=== PATIENT | female | born 1965 | race Caucasian/White ===

== ENCOUNTER 2017-03-04 13:29 | Emergency (ER) | payer OTHER ==
[2017-03-04 13:37] VITALS: BP 120/74; PULSE 109; TEMP 97.7; BMI 23.8
[2017-03-04] MEDS ORDERED: KETOROLAC TROMETHAMINE 60 MG/2 ML VIAL IM ONE (15:10)
[2017-03-04] MEDS ORDERED: KETOROLAC TROMETHAMINE 60 MG/2 ML VIAL ONE (15:15)
--- NOTE | 2017-03-04 15:40 | PDOC ---
History of Present Illness - General Chief Complaint: Injury Stated Complaint: PAIN Time Seen by Provider: 03/04/17 13:47 History Source: Patient Exam Limitations: No Limitations - History of Present Illness Initial Comments: 03/04/17 15:29 Patient is a 51-year-old female, Kylah's,spondyloropathy,fibromyalgia, ulcerative colitis with ileostomy, presents emergency Department with injury sustained while at work moving boxes, pain to left shoulder, pain and swelling to dorsum of right hand. Reports hitting her hand while moving the box. Past Medical History: Denies. Allergies: No known allergies Medications: Synthroid, Vitamin D Family History: Non-contributory Social History: Denies smoking, alcohol use, or IVDU Vital signs on arrival are notable for pulse of 106. Review of Systems GENERAL/CONSTITUTIONAL: No fever or chills. No weakness. No weight change. HEAD, EYES, EARS, NOSE AND THROAT: No change in vision. No ear pain or discharge. No sore throat. CARDIOVASCULAR: No chest pain or shortness of breath. RESPIRATORY: No cough, wheezing, or hemoptysis. GASTROINTESTINAL: No nausea, vomiting, diarrhea or constipation. No rectal bleeding. GENITOURINARY: No dysuria, frequency, or change in urination. MUSCULOSKELETAL: Pain and swelling to the dorsum of the right hand, healing eccymosis. SKIN : Edema, bruising dorsum of the right hand. NEUROLOGIC: No headache, vertigo, loss of consciousness, or loss of sensation. HEMATOLOGIC/LYMPHATIC: No anemia, easy bleeding, or history of blood clots. ALLERGIC/IMMUNOLOGIC: No hives or skin allergy. No latex allergy. Physical Exam: GENERAL: The patient is awake, alert, and fully oriented, in no acute distress. EYES: Pupils equal, round and reactive to light, extraocular movements intact, sclera anicteric, conjunctiva clear. ENT: Ears normal, nares patent, oropharynx clear without exudates. Moist mucous membranes. No uvula deviation NECK: Normal range of motion, supple without lymphadenopathy, JVD, or masses. LUNGS: Breath sounds equal, clear to auscultation bilaterally. No wheezes, and no crackles. HEART: Regular rate and rhythm, normal S1 and S2 without murmur, rub or gallop. ABDOMEN: Soft, nontender, normoactive bowel sounds. No guarding, no rebound. No masses. No bruising or abrasions MUSCULOSKELETAL: Decreased ROM to the right hand, swelling and healing eccymosis to the dorsum of the right hand at the base of the 1st finger. Decreased ROM to left shoulder with pain to lateral arm. Unable to abduct left shoulder, pronate. NEUROLOGICAL: Cranial nerves II through XII grossly intact. Normal speech, normal gait. No neuro or sensory deficits to the left arm. SKIN: Warm, Dry, normal turgor, no rashes or lesions noted. Past History - Past Medical History Allergies/Adverse Reactions: Allergies Allergy/AdvReac Type Severity Reaction Status Date / Time clindamycin Allergy Verified 03/04/17 13:32 Home Medications: Ambulatory Orders Naproxen [Naprosyn -] 500 mg PO BID #14 tablet 03/04/17 Cardiac Disorders: Yes (heart murmur, mvp) GI Disorders: Yes (IBS) Thyroid Disease: Yes Other medical history: Kylah's,spondyloropathy,fibromyalgia - Psycho/Social/Smoking Cessation Hx Suicidal Ideation: No Smoking History: Never smoked *Physical Exam - Vital Signs Last Vital Signs Temp Pulse Resp BP Pulse Ox 97.7 F 109 H 18 120/74 97 03/04/17 13:33 03/04/17 13:33 03/04/17 13:33 03/04/17 13:33 03/04/17 13:33 ED Treatment Course - RADIOLOGY Radiology Studies Ordered: Category Date Time Status SHOULDER-LEFT [RAD] Stat Radiology 03/04/17 14:43 Ordered WRIST W/HAND-RIGHT* [RAD] Stat Radiology 03/04/17 14:43 Ordered - Medications Given in the ED: ED Medications Discontinued Medications Generic Name Dose Route Start Last Admin Trade Name Freq PRN Reason Stop Dose Admin Ketorolac Tromethamine 60 mg 03/04/17 15:10 03/04/17 15:18 Toradol Injection - IM 03/04/17 15:11 60 mg ONCE ONE Administration Medical Decision Making - Medical Decision Making 03/04/17 15:57 A/P : S/P injury while at work. Pain to the right hand and the left shoulder. Toradol 60 mg IM x 1 Xray to the right hand and the left shoulder Left shoulder immobilizer. Patient to follow-up with orthopedics and primary care doctor, anti- inflammatories for pain. I discussed the physical exam findings, ancillary test results and final diagnoses with the patient. I answered all of the patient's questions. The patient was satisfied with the care received and felt comfortable with the discharge plan and treatment plan. The patient will call to arrange follow-up and will return to the Emergency Department with any new, persistent or worsening symptoms. *DC/Admit/Observation/Transfer Diagnosis at time of Disposition: Shoulder pain Qualifiers: Chronicity: acute Laterality: left Qualified Code(s): M25.512 - Pain in left shoulder Contusion, hand Qualifiers: Encounter type: initial encounter Laterality: right Qualified Code(s): S60.221A - Contusion of right hand, initial encounter - Discharge Dispostion Disposition: HOME Condition at time of disposition: Good Admit: No - Prescriptions Prescriptions: Naproxen [Naprosyn -] 500 mg PO BID #14 tablet - Referrals Referrals: Jeremy Campbell MD [Staff Physician] - - Patient Instructions Printed Discharge Instructions: How to Use a Sling Additional Instructions: Recommend follow up with ortho for shoulder. Ice to right hand. - Post Discharge Activity Work/School Note: Back to Work
== END 2017-03-04 17:14 | disposition home or self-care (01) ==
LOC: JERFT 13:29
PROC: 3E0133Z Introduction of Anti-inflammatory into Subcutaneous Tissue, Percutaneous Approach (ICD-10-PCS; principal; 2017-03-04)
DX: S60.221A Contusion of right hand, initial encounter (principal); M25.512 Pain in left shoulder; E06.3 Autoimmune thyroiditis; M79.7 Fibromyalgia; K51.90 Ulcerative colitis, unspecified, without complications; Z88.1 Allergy status to other antibiotic agents; I34.1 Nonrheumatic mitral (valve) prolapse; R01.1 Cardiac murmur, unspecified; W22.8XXA Striking against or struck by other objects, initial encounter; Y93.89 Activity, other specified; Y92.9 Unspecified place or not applicable; Y99.0 Civilian activity done for income or pay
CPT/HCPCS: 73030-TC-LT; 73110-TC-RT; 73130-TC-RT; 99281-25

== ENCOUNTER 2019-08-09 08:30 | Day surgery (SDC) | payer OTHER ==
[2019-08-08 12:30] VITALS: BMI 23.8
[2019-08-09 09:13] VITALS: TEMP 97.9
[2019-08-09 11:41] VITALS: BP 115/68; PULSE 73
--- NOTE | 2019-08-10 16:50 | PATH ---
Surgical Pathology Report Patient Name: DAVID KOEHLER [facility]. Rec. #: [id number] /Age/Gender: 1965 (Age: 54) / F Account: [id number] Location: U-ENDOSCOPY Taken: 08/09/2019 Received: 08/09/2019 Reported: 08/10/2019 Physicians: Ludy Doyle M.D. Specimen(s) Received A: DUODENUM, SECOND PORTION AND BULB B: GASTRIC FUNDUS, POLYPS C: ANTRUM D: GASTRIC FUNDUS, ULCER E: GE JUNCTON F: ILEUM, 20 CM G: PERIOSTOMY ILEM Clinical History Diffuse abdominal pain, nausea, diarrhea Postoperative diagnosis: Gastric fundus polyps, ulcer, GERD, hiatal hernia, history of colectomy for ulcerative colitis Final Diagnosis A. DUODENUM, SECOND PORTION AND BULB, BIOPSY: DUODENAL MUCOSA WITH MILD CHRONIC DUODENITIS. B. GASTRIC FUNDUS, POLYPS, BIOPSY: POLYPOID GASTRIC MUCOSA WITH MILD CHRONIC GASTRITIS AND RARE MILDLY DILATED GLANDS. IMMUNOHISTOCHEMICAL STAIN FOR H. PYLORI IS NEGATIVE. C. STOMACH, ANTRUM, BIOPSY: GASTRIC ANTRAL MUCOSA WITH MILD CHRONIC GASTRITIS. IMMUNOHISTOCHEMICAL STAIN FOR H. PYLORI IS NEGATIVE. D. GASTRIC FUNDUS, ULCER, BIOPSY: GASTRIC MUCOSA WITH MILD CHRONIC GASTRITIS AND FOCAL REACTIVE CHANGES. IMMUNOHISTOCHEMICAL STAIN FOR H. PYLORI IS NEGATIVE. E. GE JUNCTION, BIOPSY: SQUAMOCOLUMNAR MUCOSA WITH MODERATE CHRONIC INFLAMMATION AND CHANGES OF MODERATE REFLUX ESOPHAGITIS. NO INTESTINAL METAPLASIA OR DYSPLASIA IDENTIFIED. F. ILEUM, 20 CM, BIOPSY: ILEAL MUCOSA WITHOUT SIGNIFICANT PATHOLOGIC FINDINGS. SEPARATE FRAGMENT OF GASTRIC MUCOSA WITH MINIMAL CHRONIC INFLAMMATION. G. PERIOSTOMY ILEUM, BIOPSY: ILEAL MUCOSA WITHOUT SIGNIFICANT PATHOLOGIC FINDINGS. Electronically Signed Theodora Tovar M.D. Gross Description A. Received in formalin, labeled "biopsy duodenum second portion" are 3 silveira, irregular portions of soft tissue averaging 0.3 cm. in greatest dimension. The specimens are submitted in toto in one cassette. B. Received in formalin, labeled "polyps gastric fundus" is a silveira, irregular portion of soft tissue measuring 0.3 cm. in greatest dimension. The specimen is submitted in toto in one cassette. C. Received in formalin labeled "biopsy antrum," is a 0.4 x 0.2 x 0.2 cm aggregate of silveira soft tissue fragments. The formalin is filtered and the specimen is entirely submitted in one cassette. D. Received in formalin, labeled "biopsy gastric fundus" is a silveira, irregular portion of soft tissue measuring 0.3 cm. in greatest dimension. The specimen is submitted in toto in one cassette. E. Received in formalin labeled "biopsy GE junction," is a 0.5 x 0.3 x 0.2 cm aggregate of silveira soft tissue fragments. The formalin is filtered and the specimen is entirely submitted in one cassette. F. Received in formalin, labeled "biopsy ileum at 20 cm" are 2 silveira, irregular portions of soft tissue averaging 0.2 cm. in greatest dimension. The specimens are submitted in toto in one cassette. G. Received in formalin, labeled "periostomy ileum" is a silveira, irregular portion of soft tissue measuring 0.2 cm. in greatest dimension. The specimen is submitted in toto in one cassette. 08/10/2019 [facility]08/10/2019
== END 2019-08-09 12:08 | disposition home or self-care (01) ==
LOC: JASU-ENDO 08:30
PROVIDERS: ATTEND Internal Medicine Gastroenterology
PROC: 0DB68ZX Excision of Stomach, Via Natural or Artificial Opening Endoscopic, Diagnostic (ICD-10-PCS; 2019-08-09)
PROC: 0DB48ZX Excision of Esophagogastric Junction, Via Natural or Artificial Opening Endoscopic, Diagnostic (ICD-10-PCS; 2019-08-09)
PROC: 0DJD8ZZ Inspection of Lower Intestinal Tract, Via Natural or Artificial Opening Endoscopic (ICD-10-PCS; 2019-08-09)
PROC: 0DB98ZX Excision of Duodenum, Via Natural or Artificial Opening Endoscopic, Diagnostic (ICD-10-PCS; principal; 2019-08-09 08:45)
DX: K29.80 Duodenitis without bleeding (principal); K29.50 Unspecified chronic gastritis without bleeding; K21.0 Gastro-esophageal reflux disease with esophagitis; K25.9 Gastric ulcer, unspecified as acute or chronic, without hemorrhage or perforation; K44.9 Diaphragmatic hernia without obstruction or gangrene; K31.7 Polyp of stomach and duodenum
CPT/HCPCS: 81025

== ENCOUNTER 2023-06-30 12:50 | Inpatient (IN) | payer OTHER ==
[2023-06-30] MEDS ORDERED: ACETAMINOPHEN 1000 MG/100 ML BAG IVPB ONE (13:28)
[2023-06-30] MEDS ORDERED: ONDANSETRON 4 MG/2 ML VIAL IVPUSH ONE (13:29)
[2023-06-30] MEDS ORDERED: LACTATED RINGERS SOLUTION 1000 ML INFUS.BAG IV ONE ×3 (13:34→16:42)
[2023-06-30] MEDS ORDERED: morphine CARPU-JECT 4 MG/1 ML DISP.SYRIN IVPUSH ONE (13:44)
[2023-06-30] MEDS ORDERED: morphine SULFATE 4 MG/ML VIAL ONE (13:51)
[2023-06-30] MEDS ORDERED: ACETAMINOPHEN INJECTION 100 ML IVPB ONE ×2 (13:52→22:44)
[2023-06-30] MEDS ORDERED: ONDANSETRON 4 MG/2 ML VIAL ONE ×2 (13:52→22:00)
[2023-06-30 14:42] LABS: INR 0.95 (0.83-1.09)
[2023-06-30 14:43] LABS: LACTIC ACID 4.9 mmol/L (0.4-2.0)
[2023-06-30 14:45] LABS: ACTIVATED PTT 26.6 SECONDS (25.2-36.5)
[2023-06-30 14:46] LABS: HEMATOCRIT 45.9 % (32.4-45.2); HEMOGLOBIN 15.1 GM/dL (10.7-15.3); MCH 29.6 pg (25.7-33.7); MCHC 32.9 g/dl (32.0-36.0); MEAN CELL VOLUME 89.9 fl (80-96); MEAN PLT VOLUME 10.8 fl (7.5-11.1); PLATELET COUNT 182 10^3/uL (134-434); RBC 5.11 M/mm3 (3.60-5.2); RDW 13.8 % (11.6-15.6); WHITE BLOOD COUNT 10.2 K/mm3 (4.0-10.0)
[2023-06-30] MEDS ORDERED: METOPROLOL TARTRATE 5 MG/5 ML VIAL IVPUSH ONE (14:49)
[2023-06-30] MEDS ORDERED: METOPROLOL TARTRATE 5 MG/5 ML VIAL ONE (14:51)
[2023-06-30 14:59] LABS: POTASSIUM 3.9 mmol/L (3.5-5.1)
[2023-06-30 15:01] LABS: CALCIUM 10.1 mg/dL (8.5-10.1)
[2023-06-30 15:05] LABS: CREATININE 1.1 mg/dL (0.55-1.3)
[2023-06-30 15:06] LABS: BILIRUBIN,TOTAL 0.4 mg/dL (0.2-1); TOT PROT 7.7 g/dl (6.4-8.2)
[2023-06-30 15:30] LABS: ANISOCYTOSIS 0; HELMET CELLS 0; HOWELL-JOLLY BODIES 0; MACROCYTOSIS 0; OVALOCYTE 0; ROULEAU 0; SICKELED CELLS 0; TARGET CELLS 0; TEAR DROP CELLS 0; TOXIC GRANULATION 0
[2023-06-30] MEDS ORDERED: PIPERACILLIN/TAZOB 4.5 GM 4.5 GM in DEXTROSE 5%-WATER 100 ML IVPB ONE (16:33)
[2023-06-30] MEDS ORDERED: PIPERACILLIN/TAZOB 4.5 GM 4.5 GM/100 ML BAG IVPB ONE (16:42)
[2023-06-30] MEDS ORDERED: LIDOCAINE VISCOUS 2% ORAL/TOP 15 ML UNIT-DOSE CUP MM ONE (16:52)
[2023-06-30] MEDS ORDERED: morphine CARPU-JECT 2 MG/1 ML DISP.SYRIN IVPUSH PRN (17:20)
[2023-06-30] MEDS ORDERED: ACETAMINOPHEN 1000 MG/100 ML BAG IVPB PRN ×2 (17:21→22:42)
[2023-06-30] MEDS ORDERED: LACTATED RINGERS SOLUTION 1,000 ML/1,000 ML INFUS.BAG IV SCH (17:30)
[2023-06-30] MEDS ORDERED: MIDAZOLAM HCL 2 MG/2 ML SINGLE DOSE VIAL ONE (20:47)
[2023-06-30] MEDS ORDERED: SUCCINYLCHOLINE CHLORIDE 200 MG/10 ML SYRINGE ONE (20:47)
[2023-06-30] MEDS ORDERED: PROPOFOL 20 ML ONE (20:47)
[2023-06-30] MEDS ORDERED: LIDOCAINE HCL/PF 2% SDV 5ML VIAL ONE (20:47)
[2023-06-30] MEDS ORDERED: ROCURONIUM BROMIDE 50 MG/5 ML SYRINGE ONE (20:47)
[2023-06-30] MEDS ORDERED: BUPIVACAINE HCL/PF 0.25% (2.5MG/ML) 10 ML VIAL ONE ×2 (21:10)
[2023-06-30] MEDS ORDERED: ceFAZolin SODIUM 1 GM VIAL ONE (21:17)
[2023-06-30] MEDS ORDERED: DEXAMETHASONE SOD PHOSPHATE 4 MG/1 ML VIAL ONE (21:17)
[2023-06-30] MEDS ORDERED: HEPARIN NA (PORCINE) 5,000 UNITS/ML 1ML VIAL ONE (21:30)
[2023-06-30] MEDS ORDERED: KETOROLAC TROMETHAMINE 30 MG/1 ML VIAL ONE (22:00)
[2023-06-30] MEDS ORDERED: BUPIVACAINE HCL/PF 0.25% (2.5MG/ML) 10 ML VIAL IJ ONE (22:05)
[2023-06-30] MEDS ORDERED: ONDANSETRON 4 MG/2 ML VIAL IVPUSH PRN (22:22)
[2023-06-30] MEDS ORDERED: PROMETHAZINE HCL 25 MG/1 ML VIAL IVPB PRN (22:22)
[2023-06-30] MEDS ORDERED: FENTANYL CITRATE/PF 50 MCG/ML VIAL ONE (22:44)
[2023-06-30] MEDS: ACETAMINOPHEN 1000 MG/100 ML BAG IVPB ONE ×2 (22:46→22:48)
[2023-06-30] MEDS: LACTATED RINGERS SOLUTION 1,000 ML/1,000 ML INFUS.BAG IV SCH (23:00)
[2023-06-30] MEDS: LACTATED RINGERS SOLUTION 1,000 ML IV SCH (23:30)
[2023-07-01 03:35] VITALS: BMI 25.0
[2023-07-01] MEDS: LEVOTHYROXINE NA 75 MCG TABLET (FP) PO SCH (06:19)
[2023-07-01] MEDS ORDERED: LEVOTHYROXINE NA 75 MCG TABLET (FP) PO SCH ×2 (07:00→10:00)
[2023-07-01] MEDS: CALCIUM CARBONATE 650 MG TABLET PO SCH (09:39)
[2023-07-01] MEDS ORDERED: CALCIUM CARBONATE 650 MG TABLET PO SCH (10:00)
[2023-07-01] MEDS ORDERED: CHOLECALCIFEROL (VIT D3) 5000 UNITS (125 MCG) CAP PO SCH (10:00)
[2023-07-01] MEDS ORDERED: CYANOCOBALAMIN 1,000 MCG TABLET (FP) PO SCH (10:00)
[2023-07-01] MEDS ORDERED: CALCIUM CARBONATE 600 MG PO SCH (10:00)
[2023-07-01 10:45] LABS: BASO % 0.1 % (0-2.0); HEMOGLOBIN 11.7 GM/dL (10.7-15.3); LYMPH % 8.9 % (8-40); MCH 30.1 pg (25.7-33.7); MCHC 33.5 g/dl (32.0-36.0); MEAN PLT VOLUME 10.9 fl (7.5-11.1); MONO % 7.9 % (3.8-10.2); NEUT % 83.1 % (42.8-82.8); PLATELET COUNT 130 10^3/uL (134-434); RBC 3.89 M/mm3 (3.60-5.2); RDW 14.4 % (11.6-15.6); WHITE BLOOD COUNT 5.9 K/mm3 (4.0-10.0)
[2023-07-01 11:48] LABS: CALCIUM 8.7 mg/dL (8.5-10.1)
[2023-07-01 11:54] LABS: CREATININE 0.7 mg/dL (0.55-1.3)
[2023-07-01 11:55] LABS: POTASSIUM 3.7 mmol/L (3.5-5.1)
[2023-07-01] MEDS ORDERED: traMADol HCL 50 MG TABLET PO PRN (18:16)
[2023-07-01] MEDS: ACETAMINOPHEN 325 MG TABLET (FP) PO SCH (19:44)
[2023-07-02] MEDS: ACETAMINOPHEN 325 MG TABLET (FP) PO SCH ×3 (00:05→13:11)
[2023-07-02] MEDS: LACTATED RINGERS SOLUTION 1,000 ML IV SCH (01:44)
[2023-07-02] MEDS: LACTATED RINGERS SOLUTION 1,000 ML/1,000 ML INFUS.BAG IV SCH (01:46)
[2023-07-02] MEDS: LEVOTHYROXINE NA 75 MCG TABLET (FP) PO SCH (06:33)
[2023-07-02] MEDS: CALCIUM CARBONATE 650 MG TABLET PO SCH (10:38)
[2023-07-02 12:22] LABS: BASO % 0.6 % (0-2.0); EOS % 0.4 % (0-4.5); HEMATOCRIT 34.1 % (32.4-45.2); HEMOGLOBIN 11.6 GM/dL (10.7-15.3); LYMPH % 17.8 % (8-40); MCH 30.3 pg (25.7-33.7); MCHC 34.1 g/dl (32.0-36.0); MEAN CELL VOLUME 88.7 fl (80-96); MEAN PLT VOLUME 10.4 fl (7.5-11.1); MONO % 10.2 % (3.8-10.2); PLATELET COUNT 114 10^3/uL (134-434); RBC 3.84 M/mm3 (3.60-5.2); RDW 14.4 % (11.6-15.6); WHITE BLOOD COUNT 5.3 K/mm3 (4.0-10.0)
[2023-07-02 12:46] LABS: POTASSIUM 3.4 mmol/L (3.5-5.1)
[2023-07-02 12:49] LABS: BLOOD UREA NITROGEN 11.7 mg/dL (7-18); CALCIUM 8.3 mg/dL (8.5-10.1)
[2023-07-02 12:50] LABS: ALBUMIN 3.2 g/dl (3.4-5.0); MAGNESIUM 1.8 mg/dL (1.8-2.4)
[2023-07-02 12:54] LABS: BILIRUBIN,TOTAL 0.4 mg/dL (0.2-1); CREATININE 0.8 mg/dL (0.55-1.3); TOT PROT 5.9 g/dl (6.4-8.2)
[2023-07-02 13:20] VITALS: BP 108/63; PULSE 74; RESP 18; TEMP 98.6
[2023-07-02] MEDS ORDERED: POTASSIUM CHLORIDE ORAL LIQUID 20 MEQ/15 ML PO ONE (14:00)
== END 2023-07-02 15:00 | disposition home or self-care (01) | DRG 337 ==
LOC: JER 12:50 → JERBED 16:55 → J8W 23:41
PROVIDERS: ADMIT Internal Medicine; ATTEND Nurse Practitioner Family
PROC: 0DNW4ZZ Release Peritoneum, Percutaneous Endoscopic Approach (ICD-10-PCS; 2023-06-30)
PROC: 0WQF4ZZ Repair Abdominal Wall, Percutaneous Endoscopic Approach (ICD-10-PCS; principal; 2023-06-30 19:00)
DX: K46.0 Unspecified abdominal hernia with obstruction, without gangrene (principal); Z90.49 Acquired absence of other specified parts of digestive tract; K66.0 Peritoneal adhesions (postprocedural) (postinfection); E03.9 Hypothyroidism, unspecified; I34.1 Nonrheumatic mitral (valve) prolapse; M81.0 Age-related osteoporosis without current pathological fracture; I48.0 Paroxysmal atrial fibrillation; M51.86 Other intervertebral disc disorders, lumbar region; M50.80 Other cervical disc disorders, unspecified cervical region
CPT/HCPCS: 36415; 71045-TC-FY; 74019-TC-FY; 74174-TC; 80048; 80053; 83605; 83690; 83735; 84439; 84443; 84484; 85025; 85610; 85730; 86850; 86900; 86901; 93005; 93010; 94760; 97116-GP; 97161-GP; 99285-25; J1644; Q9967